=== PATIENT | female | born 1980 | race Caucasian/White ===

== ENCOUNTER 2017-10-12 18:41 | Outpatient (CLI) | payer OTHER ==
[2017-10-12 20:38] LABS: ADD MAN DIFF? NO
[2017-10-12 20:39] LABS: WHITE BLOOD COUNT 10.8 10^3/ul (4.8-10.8)
[2017-10-12 20:39] LABS: BASOPHILS % 0.3 % (0.0-2.0); EOSINOPHILS % 0.4 % (0.0-7.0); HEMATOCRIT 41.8 % (37.0-47.0); HEMOGLOBIN 13.9 g/dl (12.0-16.0); LYMPHOCYTES # 2.4 10^3/ul (0.8-2.9); LYMPHOCYTES % 21.8 % (15.0-51.0); MEAN CORPUSCULAR HEMOGLOBIN 28.7 pg (29.0-33.0); MEAN CORPUSCULAR HGB CONC 33.3 g/dl (32.0-37.0); MEAN CORPUSCULAR VOLUME 86.2 fl (82.0-101.0); MEAN PLATELET VOLUME 11.1 fl (7.4-10.4); MONOCYTE # 0.6 10^3/ul (0.3-0.9); MONOCYTES % 5.7 % (0.0-11.0); NEUTROPHIL # 7.7 10^3/ul (1.6-7.5); NEUTROPHILS % 71.4 % (39.0-77.0); PLATELET COUNT 260 10^3/UL (140-415); RED BLOOD COUNT 4.85 10^6/ul (4.20-5.40); RED CELL DISTRIBUTION WIDTH 13.1 % (11.5-14.5)
[2017-10-12 20:45] LABS: ADD UMIC YES; UR ASCORBIC ACID NEGATIVE (NEGATIVE); UR BACTERIA FEW /HPF (NONE SEEN); UR BILIRUBIN (Dip) NEGATIVE (NEGATIVE); UR BLOOD (Dip) 3+ mg/dL (NEGATIVE); UR CLARITY SLIGHTLY CLOUDY (CLEAR); UR COLOR YELLOW (YELLOW); UR GLUCOSE (Dip) NEGATIVE (NEGATIVE); UR KETONES (Dip) 1+ mg/dL (NEGATIVE); UR LEUKOCYTE ESTERASE (Dip) 3+ Leu/ul (NEGATIVE); UR MUCUS FEW /HPF (NONE SEEN); UR NITRITE (Dip) NEGATIVE (NEGATIVE); UR RBC 2 /HPF (0-5); UR SPECIFIC GRAVITY (Dip) 1.012 (1.003-1.030); UR SQUAMOUS EPITHELIAL CELL MODERATE /HPF (FEW); UR TOTAL PROTEIN (Dip) NEGATIVE (NEGATIVE); UR UROBILINOGEN (Dip) NEGATIVE (NEGATIVE); UR WBC 25 /HPF (0-5)
[2017-10-12 20:56] LABS: INR 0.95; PARTIAL THROMBOPLASTIN TIME 28.1 Sec (25.0-35.0); PROTIME 12.8 Sec (11.9-14.9)
[2017-10-12 20:59] LABS: ALANINE AMINOTRANSFERASE 33 IU/L (13-69); ALBUMIN/GLOBULIN RATIO 1.08; ALKALINE PHOSPHATASE 133 IU/L (42-121); ANION GAP 16 (8-16); ASPARTATE AMINO TRANSFERASE 22 IU/L (15-46); BILIRUBIN,INDIRECT 0.1 mg/dl (0-1.1); BILIRUBIN,TOTAL 0.1 mg/dl (0.2-1.3); BLOOD UREA NITROGEN 5 mg/dl (7-20); CARBON DIOXIDE 21 mmol/L (21-31); CHLORIDE 106 mmol/L (97-110); CREATININE 0.54 mg/dl (0.44-1.00); GLUCOSE 102 mg/dl (70-220); POTASSIUM 3.8 mmol/L (3.5-5.1); SODIUM 139 mmol/L (135-144); TOTAL PROTEIN 7.7 g/dl (6.1-8.1); URIC ACID 5.4 mg/dl (3.1-7.9)
== END 2017-10-12 22:25 | disposition home or self-care (01) ==
LOC: OBT 18:41 → L-D 18:42 → OBT 22:25
DX: O24.419 Gestational diabetes mellitus in pregnancy, unspecified control (principal); O13.3 Gestational [pregnancy-induced] hypertension without significant proteinuria, third trimester; O09.523 Supervision of elderly multigravida, third trimester; Z3A.37 37 weeks gestation of pregnancy
CPT/HCPCS: 76818; 80053; 81001; 84560; 85025; 85384; 85610; 85730

== ENCOUNTER 2017-10-18 14:28 | Outpatient (CLI) | payer OTHER | END 2017-10-18 16:25 | disposition home or self-care (01) | LOC: OBT 14:28 → L-D 14:28 → OBT 16:25 | DX: O24.119 Pre-existing type 2 diabetes mellitus, in pregnancy, unspecified trimester (principal); O09.529 Supervision of elderly multigravida, unspecified trimester; Z3A.00 Weeks of gestation of pregnancy not specified | CPT/HCPCS: 76818 ==

== ENCOUNTER 2017-10-29 06:22 | Inpatient (IN) | payer OTHER ==
[2017-10-29] MEDS ORDERED: LACTATED RINGER'S 1,000 ML IV (06:40)
[2017-10-29] MEDS ORDERED: OXYTOCIN 30 UNITS/LR 500 ML IV ×3 (07:00→18:30)
[2017-10-29] MEDS ORDERED: IBUPROFEN 600 MG TAB PO (07:00)
[2017-10-29] MEDS ORDERED: BUTORPHANOL 2 MG INJ IV (07:00)
[2017-10-29] MEDS ORDERED: CARBOPROST 250 MCG INJ IM ×2 (07:00→18:30)
[2017-10-29] MEDS ORDERED: MISOPROSTOL 200 MCG TAB PR ×2 (07:00→18:30)
[2017-10-29] MEDS ORDERED: LIDOCAINE 1% (MPF) 30 ML INJ INJ (07:00)
[2017-10-29] MEDS ORDERED: METHYLERGONOVINE 0.2 MG INJ IM ×2 (07:00→18:30)
[2017-10-29] MEDS: LACTATED RINGER'S 1,000 ML IV ×2 (07:58→11:22)
[2017-10-29 07:59] LABS: ADD MAN DIFF? NO
[2017-10-29] MEDS: AMPICILLIN 2 GM/NS (PMX) 100 ML IV (07:59)
[2017-10-29 08:02] LABS: WHITE BLOOD COUNT 10.4 10^3/ul (4.8-10.8)
[2017-10-29 08:02] LABS: BASOPHIL # 0.1 10^3/ul (0.0-0.1); BASOPHILS % 0.5 % (0.0-2.0); EOSINOPHILS % 0.2 % (0.0-7.0); HEMATOCRIT 43.8 % (37.0-47.0); HEMOGLOBIN 14.4 g/dl (12.0-16.0); LYMPHOCYTES # 1.7 10^3/ul (0.8-2.9); LYMPHOCYTES % 16.2 % (15.0-51.0); MEAN CORPUSCULAR HEMOGLOBIN 28.5 pg (29.0-33.0); MEAN CORPUSCULAR HGB CONC 32.9 g/dl (32.0-37.0); MEAN CORPUSCULAR VOLUME 86.7 fl (82.0-101.0); MEAN PLATELET VOLUME 11.7 fl (7.4-10.4); MONOCYTE # 0.4 10^3/ul (0.3-0.9); MONOCYTES % 3.9 % (0.0-11.0); NEUTROPHIL # 8.2 10^3/ul (1.6-7.5); NEUTROPHILS % 78.8 % (39.0-77.0); PLATELET COUNT 238 10^3/UL (140-415); RED BLOOD COUNT 5.05 10^6/ul (4.20-5.40)
[2017-10-29 08:28] LABS: PROTIME 12.2 Sec (11.9-14.9)
[2017-10-29 08:29] LABS: PARTIAL THROMBOPLASTIN TIME 28.6 Sec (25.0-35.0)
[2017-10-29 08:31] LABS: ALANINE AMINOTRANSFERASE 32 IU/L (13-69); ALBUMIN 4.1 g/dl (3.3-4.9); ALBUMIN/GLOBULIN RATIO 1.07; ALKALINE PHOSPHATASE 144 IU/L (42-121); ANION GAP 16 (8-16); ASPARTATE AMINO TRANSFERASE 18 IU/L (15-46); BILIRUBIN,INDIRECT 0.1 mg/dl (0-1.1); BILIRUBIN,TOTAL 0.1 mg/dl (0.2-1.3); BLOOD UREA NITROGEN 8 mg/dl (7-20); CARBON DIOXIDE 23 mmol/L (21-31); CHLORIDE 107 mmol/L (97-110); CREATININE 0.55 mg/dl (0.44-1.00); GLUCOSE 88 mg/dl (70-220); POTASSIUM 4.5 mmol/L (3.5-5.1); SODIUM 141 mmol/L (135-144); TOTAL PROTEIN 7.9 g/dl (6.1-8.1)
[2017-10-29 09:00] LABS: HEPATITIS B SURFACE ANTIGEN NEGATIVE (NEGATIVE)
[2017-10-29] MEDS ORDERED: MAGNESIUM SULFATE 4 GM/100 ML 100 ML (09:07)
[2017-10-29] MEDS: MAGNESIUM SULFATE 4 GM/100 ML 100 ML IV (09:19)
[2017-10-29] MEDS: MAGNESIUM SULFATE 20 GM/500 ML 500 ML IV ×2 (09:47→18:07)
[2017-10-29] MEDS ORDERED: AMPICILLIN 1 GM/NS (PMX) 50 ML IV (11:00)
[2017-10-29] MEDS: OXYTOCIN 30 UNITS/LR 500 ML IV ×3 (13:00→18:05)
[2017-10-29] MEDS ORDERED: FENTAnyl 2MCG/ML-ROPIV 0.2% 100 ML (14:48)
[2017-10-29 15:16] LABS: RAPID PLASMA REAGIN NONREACTIVE (NR)
[2017-10-29 16:06] LABS: ADD UMIC YES; UR ASCORBIC ACID NEGATIVE (NEGATIVE); UR BILIRUBIN (Dip) NEGATIVE (NEGATIVE); UR BLOOD (Dip) 2+ mg/dL (NEGATIVE); UR CLARITY CLEAR (CLEAR); UR COLOR YELLOW (YELLOW); UR GLUCOSE (Dip) NEGATIVE (NEGATIVE); UR KETONES (Dip) 2+ mg/dL (NEGATIVE); UR LEUKOCYTE ESTERASE (Dip) NEGATIVE Leu/ul (NEGATIVE); UR NITRITE (Dip) NEGATIVE (NEGATIVE); UR RBC 3 /HPF (0-5); UR SPECIFIC GRAVITY (Dip) 1.012 (1.003-1.030); UR TOTAL PROTEIN (Dip) NEGATIVE (NEGATIVE); UR UROBILINOGEN (Dip) NEGATIVE (NEGATIVE); UR WBC 1 /HPF (0-5)
[2017-10-29 17:40] LABS: AMPHETAMINE/METHAMPHETAMINE Negative (NEGATIVE); BARBITURATES Negative (NEGATIVE); BENZODIAZEPINES Negative (NEGATIVE); CANNABINOIDS Negative (NEGATIVE); COCAINE Negative (NEGATIVE); OPIATES Negative (NEGATIVE)
[2017-10-29] MEDS: LACTATED RINGER'S 1,000 ML IV* (18:11)
[2017-10-29 18:23] LABS: MAGNESIUM 2.4 mg/dl (1.7-2.5)
[2017-10-29] MEDS ORDERED: ZOLPIDEM 5 MG TAB PO (18:30)
[2017-10-29] MEDS ORDERED: HYDROCODONE/APAP (5/325) TAB PO ×2 (18:30)
[2017-10-29] MEDS ORDERED: DIBUCAINE 1% 30 GM OINT PR (18:30)
[2017-10-29] MEDS: IBUPROFEN 600 MG TAB PO (18:43)
[2017-10-29] MEDS: WITCH HAZEL/GLYCERIN PAD PR (18:43)
[2017-10-29] MEDS: CEPHALEXIN 500 MG CAP PO (18:43)
[2017-10-29] MEDS: BENZOCAINE 20% 56 ML SPRAY TOP (18:43)
[2017-10-29] MEDS: LANOLIN 7 GM TUBE TOP (18:44)
[2017-10-29] MEDS: ACCU-CHEK XX ×2 (20:05→22:18)
[2017-10-29] MEDS: MAGNESIUM HYDROXIDE 30ML CUP PO (21:06)
[2017-10-29] MEDS: SENNA/DOCUSATE NA (8.6MG/50MG) TAB PO (21:06)
[2017-10-30] MEDS: IBUPROFEN 600 MG TAB PO ×4 (00:21→17:51)
[2017-10-30] MEDS: CEPHALEXIN 500 MG CAP PO ×4 (00:21→17:51)
[2017-10-30] MEDS: LACTATED RINGER'S 1,000 ML IV* ×2 (00:28→12:30)
[2017-10-30 01:10] LABS: MAGNESIUM 3.2 mg/dl (1.7-2.5)
[2017-10-30] MEDS: MAGNESIUM SULFATE 20 GM/500 ML 500 ML IV (06:23)
[2017-10-30 07:01] LABS: ADD MAN DIFF? NO
[2017-10-30 07:05] LABS: WHITE BLOOD COUNT 11.8 10^3/ul (4.8-10.8)
[2017-10-30 07:05] LABS: BASOPHILS % 0.3 % (0.0-2.0); EOSINOPHILS % 0.2 % (0.0-7.0); HEMATOCRIT 34.2 % (37.0-47.0); HEMOGLOBIN 11.4 g/dl (12.0-16.0); LYMPHOCYTES # 1.6 10^3/ul (0.8-2.9); LYMPHOCYTES % 13.7 % (15.0-51.0); MEAN CORPUSCULAR HEMOGLOBIN 28.9 pg (29.0-33.0); MEAN CORPUSCULAR HGB CONC 33.3 g/dl (32.0-37.0); MEAN CORPUSCULAR VOLUME 86.6 fl (82.0-101.0); MEAN PLATELET VOLUME 11.5 fl (7.4-10.4); MONOCYTE # 0.5 10^3/ul (0.3-0.9); MONOCYTES % 4.3 % (0.0-11.0); NEUTROPHIL # 9.5 10^3/ul (1.6-7.5); NEUTROPHILS % 81.1 % (39.0-77.0); PLATELET COUNT 215 10^3/UL (140-415); RED BLOOD COUNT 3.95 10^6/ul (4.20-5.40); RED CELL DISTRIBUTION WIDTH 12.8 % (11.5-14.5)
[2017-10-30 07:45] LABS: MAGNESIUM 3.4 mg/dl (1.7-2.5)
[2017-10-30] MEDS: SENNA/DOCUSATE NA (8.6MG/50MG) TAB PO ×2 (08:48→21:00)
[2017-10-30] MEDS: MAGNESIUM HYDROXIDE 30ML CUP PO ×2 (08:48→21:00)
[2017-10-30] MEDS: ACCU-CHEK XX ×2 (09:00→11:30)
[2017-10-30 12:43] LABS: MAGNESIUM 3.2 mg/dl (1.7-2.5)
[2017-10-30] MEDS: metFORMIN (XR) 500 MG TAB PO (18:39)
[2017-10-31] MEDS: CEPHALEXIN 500 MG CAP PO ×3 (05:54→11:35)
[2017-10-31] MEDS: IBUPROFEN 600 MG TAB PO ×3 (05:54→11:35)
[2017-10-31] MEDS: SENNA/DOCUSATE NA (8.6MG/50MG) TAB PO (09:03)
[2017-10-31] MEDS: MAGNESIUM HYDROXIDE 30ML CUP PO (09:03)
[2017-10-31] MEDS: DIPHTH/TET/ACEL PERTUSS (ADULT) 0.5 ML VIAL IM* (09:03)
[2017-10-31] MEDS: metFORMIN (XR) 500 MG TAB PO (09:03)
[2017-10-31] MEDS: VARICELLA VACCINE LIVE/PF 1,350 UNIT/0.5 ML ML SC* (09:04)
[2017-10-31] MEDS: MEASLES,MUMPS,RUBELLA VACCINE INJ SC* (09:04)
[2017-10-31 11:45] LABS: ADD MAN DIFF? NO
[2017-10-31 11:49] LABS: BASOPHILS % 0.4 % (0.0-2.0); EOSINOPHILS % 0.4 % (0.0-7.0); HEMATOCRIT 32.7 % (37.0-47.0); HEMOGLOBIN 10.6 g/dl (12.0-16.0); LYMPHOCYTES # 2.1 10^3/ul (0.8-2.9); LYMPHOCYTES % 22.3 % (15.0-51.0); MEAN CORPUSCULAR HEMOGLOBIN 28.8 pg (29.0-33.0); MEAN CORPUSCULAR HGB CONC 32.4 g/dl (32.0-37.0); MEAN CORPUSCULAR VOLUME 88.9 fl (82.0-101.0); MEAN PLATELET VOLUME 11.6 fl (7.4-10.4); MONOCYTE # 0.4 10^3/ul (0.3-0.9); MONOCYTES % 4.4 % (0.0-11.0); NEUTROPHIL # 6.8 10^3/ul (1.6-7.5); PLATELET COUNT 233 10^3/UL (140-415); RED BLOOD COUNT 3.68 10^6/ul (4.20-5.40); RED CELL DISTRIBUTION WIDTH 13.2 % (11.5-14.5)
[2017-10-31 11:49] LABS: WHITE BLOOD COUNT 9.5 10^3/ul (4.8-10.8)
[2017-11-01] MEDS ORDERED: INFLUENZA VIRUS VACCINE 0.5 ML (DISPENSING) IM* (09:00)
== END 2017-10-31 13:50 | disposition home or self-care (01) | DRG 775 ==
LOC: OBT 06:22 → L-D 06:24 → OBT 07:18 → L-D 06:35 → PP1 18:12
PROC: 10E0XZZ Delivery of Products of Conception, External Approach (ICD-10-PCS; principal; 2017-10-29)
PROC: 4A1HXCZ Monitoring of Products of Conception, Cardiac Rate, External Approach (ICD-10-PCS; 2017-10-29)
DX: O24.420 Gestational diabetes mellitus in childbirth, diet controlled (principal); Z37.0 Single live birth; O13.4 Gestational [pregnancy-induced] hypertension without significant proteinuria, complicating childbirth; Z3A.39 39 weeks gestation of pregnancy
CPT/HCPCS: 62319; 80053; 80307; 81001; 82962; 83735; 84560; 85025; 85610; 85730; 86592; 86900; 86901; 87340; 90715; 90716; 99464